=== PATIENT | female | born 1960 | race African-American/Black ===

== ENCOUNTER 2016-12-06 21:53 | Emergency (ER) | payer MEDICAID ==
[~2016-12-06] VITALS: Ht 165.1 cm; Wt 61.0 kg
[~2016-12-06 21:53] MED LIST: CHOL500010 PO; CLON0.1T PO; LORA1TAB PO
[2016-12-07] MEDS ORDERED: ONDANSETRON HCL 4MG/2ML VIAL IV ONE (03:45)
[2016-12-07] MEDS ORDERED: MORPHINE SULFATE 4 MG/ML CPJ (NOT FOR IM USE) IV ONE ×3 (03:45→09:00)
[2016-12-07] MEDS ORDERED: SODIUM CHLORIDE 0.9% 1,000 ML IV ONE (03:45)
[2016-12-07 03:58] LABS: BASOPHILS % 0.4 % (0.0-2.0); CHLORIDE 90 mEq/L (98-107); EOSINOPHILS % 0.4 % (0.0-5.0); HEMATOCRIT. 44.2 % (36.0-48.0); HEMOGLOBIN. 14.9 g/dL (12.0-16.0); INDEX HEMOLYSI 1 (1-3); INDEX ICTERIC 1 (1-4); INDEX LIPEMIC 1 (1-3); LYMPHOCYTES % 12.9 % (20.0-50.0); MEAN CORPUSCULAR HEMOGLOBIN 29.9 pg (28.0-32.0); MEAN CORPUSCULAR HGB CONC 33.6 g/dL (31.0-37.0); MEAN CORPUSCULAR VOLUME 89.1 fL (81.0-99.0); MEAN PLATELET VOLUME 8.3 fl (7.4-10.4); MONOCYTES % 8.8 % (2.0-8.0); NEUTROPHILS % 77.5 % (40.0-76.0); PLATELET 147 x1000/uL (130-400); RED BLOOD CELL COUNT 4.96 mill/uL (4.2-5.4); RED CELL DISTRIBUTION WIDTH 14.7 % (11.6-14.6); WHITE BLOOD COUNT 11.7 x1000/uL (4.5-11.0)
[2016-12-07 04:01] LABS: INR 1.1
[2016-12-07 04:07] LABS: ALANINE AMINOTRANSFERASE 46 IU/L (13-61); ALBUMIN 4.1 g/dL (3.4-5.0); ANION GAP 16; CALCIUM 9.9 mg/dL (8.5-10.1); CARBON DIOXIDE 28 mEq/L (21-32); UREA NITROGEN BLOOD 13 mg/dL (7-21); eGFR > 60 mL/min (>60)
[2016-12-07] MEDS ORDERED: LEVETIRACETAM 500MG/5ML CUP PO ONE (05:00)
[2016-12-07] MEDS ORDERED: LEVETIRACETAM 500MG PREMIX 100 ML IV ONE (05:30)
[2016-12-07] MEDS ORDERED: NIMODIPINE 30MG CAPSULE PO ONE (06:15)
[2016-12-07 06:22] LABS: CLARITY URINE CLEAR (CLEAR); COLOR URINE YELLOW (YELLOW); GLUCOSE URINE NEGATIVE (NEGATIVE); KETONES URINE NEGATIVE (NEGATIVE); LEUKOCYTE ESTERASE URINE NEGATIVE (NEGATIVE); NITRITE URINE NEGATIVE (NEGATIVE); OCCULT BLOOD URINE 2+ (NEGATIVE); PH URINE 6.5 (4.5-8.0); PROTEIN URINE NEGATIVE (NEGATIVE); SPECIFIC GRAVITY URINE 1.011 (1.005-1.030); UROBILINOGEN URINE 0.2 E.U./dL (0.2-1.0)
[2016-12-07 06:54] LABS: *AMPHETAMINES SCREEN URINE NEGATIVE (NEGATIVE); *BARBITURATES SCREEN URINE NEGATIVE (NEGATIVE); *BENZODIAZEPINES SCREEN URINE NEGATIVE (NEGATIVE); *COCAINE SCREEN URINE NEGATIVE (NEGATIVE); CANNABINOID URINE SCREEN NEGATIVE (NEGATIVE); ECSTASY MDMA SCREEN URINE NEGATIVE (NEGATIVE); METHADONE URINE SCREEN NEGATIVE (NEGATIVE); OPIATES URINE SCREEN PRESUMTIVE POSITIVE (NEGATIVE); PHENCYCLIDINE URINE SCREEN NEGATIVE (NEGATIVE)
[2016-12-07 07:34] LABS: SQUAMOUS EPITHELIAL CELL URINE RARE /lpf (RARE/1+)
[2016-12-07 07:36] LABS: BACTERIA URINE TRACE; RBC URINE 0-2 /hpf (0-2); WBC URINE 0-2 /hpf (0-2)
[2016-12-07 08:35] VITALS: BP 116/66
[2016-12-07] MEDS ORDERED: SODIUM CHLORIDE 0.9% 10ML VIAL ONE (10:45)
[2016-12-07] MEDS ORDERED: IOHEXOL-350 100 ML BOTTLE ONE (10:45)
== END 2016-12-07 09:10 | disposition short-term general hospital (02) ==
LOC: ER 21:53
DX: I60.9 Nontraumatic subarachnoid hemorrhage, unspecified (principal); I10 Essential (primary) hypertension; F32.9 Major depressive disorder, single episode, unspecified; F17.200 Nicotine dependence, unspecified, uncomplicated; Z90.710 Acquired absence of both cervix and uterus
CPT/HCPCS: 36415; 70450; 70496; 80053; 80305; 81001; 81025; 85025; 85610; 85730; 96361; 96365; 96375; 96376; 99291; A4216; J1953; J2270; J2405; J7030; Q9967; Z7610

== ENCOUNTER 2018-12-07 07:28 | Emergency (ER) | payer MEDICAID ==
[~2018-12-07] VITALS: Ht 170.2 cm; Wt 72.0 kg
[2018-12-07] MEDS ORDERED: TETRACAINE 0.5% OPHTH DROPS 4ML OP ONE (08:15)
[2018-12-07] MEDS ORDERED: ACETAMINOPHEN 325MG TABLET PO ONE (09:00)
[2018-12-07 09:51] VITALS: BP 158/98
== END 2018-12-07 09:53 | disposition left against medical advice (07) ==
LOC: ER 07:28
DX: H57.89 Other specified disorders of eye and adnexa (principal); H57.11 Ocular pain, right eye; J34.89 Other specified disorders of nose and nasal sinuses; H53.141 Visual discomfort, right eye; I10 Essential (primary) hypertension; I72.9 Aneurysm of unspecified site; F17.290 Nicotine dependence, other tobacco product, uncomplicated; Z90.710 Acquired absence of both cervix and uterus
CPT/HCPCS: 99283

== ENCOUNTER 2019-09-18 09:33 | Emergency (ER) | payer MEDICAID ==
[~2019-09-18] VITALS: Ht 165.1 cm; Wt 78.0 kg
[2019-09-18 09:47] VITALS: BP 169/113
[2019-09-18] MEDS ORDERED: KETOROLAC 60MG/2ML VIAL IM ONE (10:45)
[2019-09-18 11:13] LABS: *BARBITURATES SCREEN URINE NEGATIVE (NEGATIVE); *BENZODIAZEPINES SCREEN URINE NEGATIVE (NEGATIVE)
[2019-09-18 11:14] LABS: *AMPHETAMINES SCREEN URINE NEGATIVE (NEGATIVE); *COCAINE SCREEN URINE NEGATIVE (NEGATIVE); CANNABINOID URINE SCREEN PRESUMTIVE POSITIVE (NEGATIVE); METHADONE URINE SCREEN NEGATIVE (NEGATIVE); OPIATES URINE SCREEN NEGATIVE (NEGATIVE); PHENCYCLIDINE URINE SCREEN NEGATIVE (NEGATIVE)
[2019-09-18 11:44] LABS: BASOPHILS % 0.5 % (0.0-2.0); EOSINOPHILS % 2.4 % (0.0-5.0); HEMATOCRIT. 42.2 % (36.0-48.0); HEMOGLOBIN. 14.2 g/dL (12.0-16.0); LYMPHOCYTES % 26.8 % (20.0-50.0); MEAN CORPUSCULAR HEMOGLOBIN 31.1 pg (28.0-32.0); MEAN CORPUSCULAR VOLUME 92.1 fL (81.0-99.0); MEAN PLATELET VOLUME 8.5 fl (7.4-10.4); MONOCYTES % 5.4 % (2.0-8.0); NEUTROPHILS % 64.9 % (40.0-76.0); PLATELET 179 x1000/uL (130-400); RED BLOOD CELL COUNT 4.58 mill/uL (4.2-5.4); RED CELL DISTRIBUTION WIDTH 14.4 % (11.6-14.6)
[2019-09-18 11:50] LABS: CHLORIDE 113 mEq/L (98-107)
== END 2019-09-18 13:25 | disposition left against medical advice (07) ==
LOC: ER 09:51
DX: R07.89 Other chest pain (principal); M54.9 Dorsalgia, unspecified; I11.9 Hypertensive heart disease without heart failure; F41.9 Anxiety disorder, unspecified; Z90.710 Acquired absence of both cervix and uterus
CPT/HCPCS: 36415; 71045; 80053; 80305; 83690; 83880; 84484; 85025; 85379; 93005; 93970; 96372; 99285; J1885

== ENCOUNTER 2025-01-02 07:09 | Emergency (ER) | payer BC, MEDICAID ==
[~2025-01-02] VITALS: Ht 157.5 cm; Wt 82.6 kg
[2025-01-02 07:15] VITALS: O2SAT 99
[2025-01-02] MEDS ORDERED: IBUP-2030 MT (09:00)
[2025-01-02] MEDS ORDERED: CHLO473M2 MT (09:00)
[2025-01-02] MEDS ORDERED: DEXA6TAB MT (09:00)
[2025-01-02] MEDS ORDERED: AMOX1TAB16 MT (09:00)
[2025-01-02 09:19] VITALS: BP 170/110; PULSE 102; RESP 15; TEMP 36.6; O2SAT 100
== END 2025-01-02 09:20 | disposition home or self-care (01) ==
LOC: ER 07:44
DX: K04.7 Periapical abscess without sinus (principal); I10 Essential (primary) hypertension; I51.9 Heart disease, unspecified; F41.9 Anxiety disorder, unspecified; Z79.899 Other long term (current) drug therapy; Z98.890 Other specified postprocedural states; Z86.73 Personal history of transient ischemic attack (TIA), and cerebral infarction without residual deficits; Z90.710 Acquired absence of both cervix and uterus
CPT/HCPCS: 99283